=== PATIENT | male | born 1965 | race Caucasian/White ===

== ENCOUNTER 2017-12-05 18:15 | Emergency (ER) | payer SELFPAY ==
[2017-12-05 19:26] VITALS: BP 117/76
--- NOTE | 2017-12-05 19:43 | ED ---
Throat Pain/Nasal Congestion - HPI Summary HPI Summary: 52 yr male with frontal headache, sinus pressure/ congestion x 6 weeks. States was seen at PCP 11/06 with sinusitis diagnosis, given amox, symptoms improved then returned after finishing antibiotic.Denies fever. - History of Current Complaint Chief Complaint: UCGeneralIllness Time Seen by Provider: 12/05/17 19:27 - Allergies/Home Medications Allergies/Adverse Reactions: Allergies Allergy/AdvReac Type Severity Reaction Status Date / Time No Known Allergies Allergy Verified 12/05/17 19:21 Home Medications: Home Medications Fenofibrate 40 mg PO DAILY 12/05/17 [History Confirmed 12/05/17] metFORMIN* [Glucophage 1000 MG TAB *] 1,000 mg PO DAILY 12/05/17 [History Confirmed 12/05/17] PMH/Surg Hx/FS Hx/Imm Hx Endocrine/Hematology History: Reports: Hx Diabetes - type 2 - Surgical History Surgery Procedure, Year, and Place: T & A, KNEE SURGERIS Infectious Disease History: No Infectious Disease History: Denies: Traveled Outside the [place] in Last 30 Days - Family History Known Family History: Positive: None - Social History Alcohol Use: Rare Substance Use Type: Reports: None Smoking Status (MU): Heavy Every Day Tobacco Smoker Amount Used/How Often: 1PPD Length of Time of Smoking/Using Tobacco: 32 YRS Have You Smoked in the Last Year: Yes Review of Systems Negative: Fever, Chills Negative: Photophobia Positive: Nasal Discharge, Other - sinus tenderness Positive: Headache All Other Systems Reviewed And Are Negative: Yes Physical Exam Triage Information Reviewed: Yes Vital Signs On Initial Exam: Initial Vitals Temp Pulse Resp BP Pulse Ox 98.2 F 75 16 117/76 97 12/05/17 19:15 12/05/17 19:15 12/05/17 19:15 12/05/17 19:15 12/05/17 19:15 Vital Signs Reviewed: Yes Appearance: Positive: Well-Appearing, No Pain Distress Skin: Positive: Warm, Skin Color Reflects Adequate Perfusion Head/Face: Positive: Normal Head/Face Inspection Eyes: Positive: EOMI, ERAN ENT: Positive: Pharynx normal, Nasal congestion, Nasal drainage, TMs normal, Sinus tenderness Neck: Positive: Supple, Nontender Respiratory/Lung Sounds: Positive: Clear to Auscultation, Breath Sounds Present Cardiovascular: Positive: RRR. Negative: Murmur Abdomen Description: Positive: Nontender Musculoskeletal: Positive: Strength/ROM Intact Neurological: Positive: Sensory/Motor Intact, Alert, Oriented to Person Place, Time, CN Intact II-III Psychiatric: Positive: Normal - Evelyne Coma Scale Best Eye Response: 4 - Spontaneous Best Motor Response: 6 - Obeys Commands Best Verbal Response: 5 - Oriented Coma Scale Total: 15 Diagnostics - Vital Signs Vital Signs Temp Pulse Resp BP Pulse Ox 12/05/17 19:15 98.2 F 75 16 117/76 97 - Laboratory Lab Statement: Any lab studies that have been ordered have been reviewed, and results considered in the medical decision making process. EENT Course/Dx - Course Course Of Treatment: 52 yr old male with sinusitis. Rx with Augmentin this time. DC home. FU pmd - Diagnoses Provider Diagnoses: Sinusitis Discharge - Sign-Out/Discharge Documenting (check all that apply): Discharge/Admit/Transfer - Discharge Plan Condition: Good Disposition: HOME Prescriptions: Amoxicillin/Clavulanate TAB* [Augmentin TAB 875*] 875 mg PO BID #20 tab Patient Education Materials: Sinusitis (ED) Referrals: Parvez Aldridge DO [Primary Care Provider] - 2 Days - Billing Disposition and Condition Condition: GOOD Disposition: HOME
[2017-12-05] MEDS ORDERED: Amoxicillin/Clavulanate TAB* 875 MG PO ONE (19:55)
== END 2017-12-05 20:00 | disposition home or self-care (01) ==
LOC: UCCORT 18:15
DX: J32.9 Chronic sinusitis, unspecified (principal); F17.200 Nicotine dependence, unspecified, uncomplicated
CPT/HCPCS: 99202; A9270-GY; G0463